=== PATIENT | male | born 1980 | race Caucasian/White ===

== ENCOUNTER 2019-03-31 12:18 | Emergency (ER) | payer OTHER ==
[2019-03-31] MEDS: CEFTRIAXONE 1 GM INJ IM (13:21)
== END 2019-03-31 13:40 | disposition home or self-care (01) ==
LOC: FTE 12:18
DX: K08.9 Disorder of teeth and supporting structures, unspecified (principal)
CPT/HCPCS: 96372; 99284-25; J0696